=== PATIENT | female | born 1955 | race Caucasian/White ===

== ENCOUNTER 2017-08-07 11:27 | Inpatient (IN) | payer OTHER ==
[~2017-08-07] VITALS: Ht 152.4 cm; Wt 64.2 kg
[2017-08-07] MEDS ORDERED: SODIUM CHLORIDE FLUSH 10ML SYR IVF ONE (12:00)
[2017-08-07] MEDS ORDERED: MORPHINE SULFATE 4 MG/ML, 1ML IVPush PRN (12:00)
[2017-08-07 12:20] LABS: BASOPHILS # (AUTO) 0.06 x10^3/uL (0-0.1); BASOPHILS % (AUTO) 1 % (0-1); EOSINOPHILS # (AUTO) 0.21 x10^3/uL (0-0.4); EOSINOPHILS % (AUTO) 2 % (1-7); LYMPHOCYTES % (AUTO) 13 % (22-44); MD NO; MEAN CORPUSCULAR HEMOGLOBIN 33.8 pg (27.0-34.8); MEAN CORPUSCULAR HGB CONC 34.8 g/dL (32.4-35.8); MEAN CORPUSCULAR VOLUME 97.1 fL (80-100); MEAN PLATELET VOLUME 7.3 fL (7.4-10.4); MONOCYTES # (AUTO) 0.79 x10^3/uL (0.2-0.8); MONOCYTES % (AUTO) 7 % (2-9); NEUTROPHILS # (AUTO) 9.32 x10^3/uL (1.8-6.8); NEUTROPHILS % (AUTO) 78 % (42-75); PLATELET COUNT 335 x10^3/uL (130-400); RED BLOOD COUNT 3.44 x10^6/uL (3.82-5.3); RED CELL DISTRIBUTION WIDTH 13.6 % (9.6-15.2)
[2017-08-07] MEDS ORDERED: ESTR1TAB17 PO (12:23)
[2017-08-07] MEDS ORDERED: LEVO50TA5 PO (12:23)
[2017-08-07] MEDS ORDERED: PANT40TA5 PO (12:23)
[2017-08-07] MEDS ORDERED: MEDR2.5T PO (12:23)
[2017-08-07] MEDS ORDERED: METO-95 PO (12:23)
[2017-08-07] MEDS ORDERED: OXYC5CAP2 PO (12:23)
[2017-08-07] MEDS ORDERED: LORA10TA62 PO (12:23)
[2017-08-07] MEDS ORDERED: DULO30CA2 PO (12:23)
[2017-08-07] MEDS ORDERED: DICY20TA3 PO (12:23)
[2017-08-07 12:28] LABS: INTERNATIONAL NORMALIZED RATIO 0.91 (0.93-1.1); PROTHROMBIN TIME 9.5 Seconds (9.6-11.5)
[2017-08-07 12:33] LABS: CHLORIDE 97 mmol/L (98-107)
[2017-08-07 12:34] LABS: ALBUMIN 3.3 g/dL (3.4-5.0); ANION GAP 10 mmol/L (5-15); CALCIUM 7.9 mg/dL (8.5-10.1)
[2017-08-07 12:39] LABS: ALANINE AMINOTRANSFERASE 24 U/L (12-78); ALKALINE PHOSPHATASE 99 U/L (45-117); BILIRUBIN,TOTAL 0.9 mg/dL (0.2-1.0); CREATININE 0.74 mg/dL (0.55-1.02); TOTAL PROTEIN 6.7 g/dL (6.4-8.2); TROPONIN I 0.016 ng/mL (0.000-0.045)
[2017-08-07] MEDS ORDERED: OMNIPAQUE 350 MG/ML, 100ML BOTTLE ONE (13:12)
[2017-08-07] MEDS ORDERED: CEFTRIAXONE PMX 1GM/50ML 50 ML IV ONE (14:00)
[2017-08-07] MEDS ORDERED: AZITHROMYCIN 500 MG in SODIUM CHLORIDE 0.9% 250 ML IV ONE (14:00)
[2017-08-07] MEDS ORDERED: MORPHINE SULFATE 4 MG/ML, 1ML ONE (14:15)
[2017-08-07] MEDS ORDERED: CEFTRIAXONE PMX 1GM/50ML 50 ML ONE (14:29)
[2017-08-07 15:10] VITALS: BP 119/73
[2017-08-07] MEDS ORDERED: ACETAMINOPHEN 325 MG TABLET PO PRN (15:30)
[2017-08-07] MEDS ORDERED: ALBUTEROL/IPRATROPIUM 2.5MG/0.5MG, 3 ML HHN SCH ×2 (15:30→16:00)
[2017-08-07] MEDS ORDERED: ALBUTEROL/IPRATROPIUM 2.5MG/0.5MG, 3 ML NPPB PRN (16:00)
[2017-08-07] MEDS: SODIUM CHLORIDE 0.9% 1,000 ML IV SCH (16:43)
[2017-08-07] MEDS: AZITHROMYCIN 500 MG in SODIUM CHLORIDE 0.9% 250 ML IV SCH (17:21)
[2017-08-07 17:36] LABS: TROPONIN I < 0.015 ng/mL (0.000-0.045)
[2017-08-07 19:27] VITALS: BP 109/60
[2017-08-07 21:20] VITALS: BP 128/69
[2017-08-07] MEDS: OXYcodone IR 5MG TABLET PO PRN (21:28)
[2017-08-08 01:07] VITALS: BP 109/56
[2017-08-08] MEDS: SODIUM CHLORIDE 0.9% 1,000 ML IV SCH (03:23)
[2017-08-08] MEDS: OXYcodone IR 5MG TABLET PO PRN ×2 (03:36→16:48)
[2017-08-08 04:55] LABS: ALANINE AMINOTRANSFERASE 17 U/L (12-78); ALBUMIN 2.6 g/dL (3.4-5.0); ANION GAP 7 mmol/L (5-15); CALCIUM 7.5 mg/dL (8.5-10.1); CHLORIDE 104 mmol/L (98-107)
[2017-08-08 05:00] LABS: ALKALINE PHOSPHATASE 85 U/L (45-117); BILIRUBIN,TOTAL 0.7 mg/dL (0.2-1.0); TOTAL PROTEIN 5.8 g/dL (6.4-8.2)
[2017-08-08 05:09] LABS: BASOPHILS # (AUTO) 0.06 x10^3/uL (0-0.1); BASOPHILS % (AUTO) 1 % (0-1); EOSINOPHILS # (AUTO) 0.28 x10^3/uL (0-0.4); EOSINOPHILS % (AUTO) 3 % (1-7); LYMPHOCYTES # (AUTO) 1.74 x10^3/uL (1-3.4); LYMPHOCYTES % (AUTO) 20 % (22-44); MD NO; MEAN CORPUSCULAR HEMOGLOBIN 34.2 pg (27.0-34.8); MEAN CORPUSCULAR HGB CONC 35.2 g/dL (32.4-35.8); MEAN CORPUSCULAR VOLUME 97.2 fL (80-100); MEAN PLATELET VOLUME 7.1 fL (7.4-10.4); MONOCYTES # (AUTO) 0.78 x10^3/uL (0.2-0.8); MONOCYTES % (AUTO) 9 % (2-9); NEUTROPHILS # (AUTO) 5.72 x10^3/uL (1.8-6.8); NEUTROPHILS % (AUTO) 67 % (42-75); PLATELET COUNT 318 x10^3/uL (130-400)
[2017-08-08] MEDS: LEVOTHYROXINE 50 MCG TABLET PO SCH (05:51)
[2017-08-08] MEDS ORDERED: CEFTRIAXONE PMX 1GM/50ML 50 ML IV SCH (07:00)
[2017-08-08 07:05] VITALS: BP 96/62
[2017-08-08] MEDS: DULOXETINE 30 MG CAPSULE.DR PO SCH (08:44)
[2017-08-08] MEDS: OXYcodone IR 5MG TABLET PO SCH ×2 (08:45→22:50)
[2017-08-08] MEDS: LORATADINE 10 MG TABLET PO SCH (08:45)
[2017-08-08] MEDS: ESTRADIOL 1 MG TABLET PO SCH (08:45)
[2017-08-08] MEDS: PANTOPROZOLE 40MG TABLET PO SCH (08:45)
[2017-08-08] MEDS: DICYCLOMINE 20 MG TABLET PO SCH (08:45)
[2017-08-08] MEDS: MEDROXYPROGESTERONE ACETATE 2.5 MG TABLET PO SCH (08:45)
[2017-08-08 13:15] VITALS: BP 100/62
[2017-08-08] MEDS: AZITHROMYCIN 500 MG in SODIUM CHLORIDE 0.9% 250 ML IV SCH (16:48)
[2017-08-08 19:41] VITALS: BP 131/60
[2017-08-09 01:29] VITALS: BP 123/66
[2017-08-09] MEDS: LEVOTHYROXINE 50 MCG TABLET PO SCH (06:08)
[2017-08-09 07:46] VITALS: BP 146/84
[2017-08-09] MEDS: LORATADINE 10 MG TABLET PO SCH (08:59)
[2017-08-09] MEDS: PANTOPROZOLE 40MG TABLET PO SCH (08:59)
[2017-08-09] MEDS: DICYCLOMINE 20 MG TABLET PO SCH (08:59)
[2017-08-09] MEDS: OXYcodone IR 5MG TABLET PO SCH (09:00)
[2017-08-09] MEDS: DULOXETINE 30 MG CAPSULE.DR PO SCH (09:00)
[2017-08-09] MEDS: ESTRADIOL 1 MG TABLET PO SCH (09:00)
[2017-08-09] MEDS ORDERED: ALBUTEROL/IPRATROPIUM 2.5MG/0.5MG, 3 ML NPPB SCH (09:00)
[2017-08-09] MEDS: MEDROXYPROGESTERONE ACETATE 2.5 MG TABLET PO SCH (09:00)
[2017-08-09] MEDS ORDERED: CEFD300C37 PO (09:28)
[2017-08-09] MEDS ORDERED: CEFDINIR 300 MG CAPSULE PO SCH (09:30)
[2017-08-09] MEDS ORDERED: CEFTRIAXONE PMX 1GM/50ML 50 ML IV SCH (10:00)
== END 2017-08-09 15:00 | disposition home or self-care (01) | DRG 871 ==
LOC: ED 12:10 → EDIP 14:08 → 3NE 14:56 → DCLOUNGE 08-09 14:43
PROVIDERS: ADMIT Internal Medicine; ATTEND Internal Medicine
DX: A41.9 Sepsis, unspecified organism (principal); E43 Unspecified severe protein-calorie malnutrition; J96.01 Acute respiratory failure with hypoxia; J18.1 Lobar pneumonia, unspecified organism; Z99.81 Dependence on supplemental oxygen; E03.9 Hypothyroidism, unspecified; Z96.659 Presence of unspecified artificial knee joint; I10 Essential (primary) hypertension; J43.9 Emphysema, unspecified; K21.9 Gastro-esophageal reflux disease without esophagitis; R65.20 Severe sepsis without septic shock; Z79.890 Hormone replacement therapy; Z80.1 Family history of malignant neoplasm of trachea, bronchus and lung; Z87.01 Personal history of pneumonia (recurrent); Z87.891 Personal history of nicotine dependence; Z68.27 Body mass index [BMI] 27.0-27.9, adult
CPT/HCPCS: 36415; 71045; 71275; 80053; 83605; 83880; 84484; 85025; 85610; 85730; 87040; 93005; 94640; 96365; 96375; J0456; J0696; J7620; Q9967; J7030; J7050